=== PATIENT | female | born 1985 | race Caucasian/White ===

== ENCOUNTER 2017-11-07 16:57 | Emergency (ER) | payer SELFPAY ==
[~2017-11-07] VITALS: Ht 157.5 cm; Wt 56.8 kg
[2017-11-07 16:57] VITALS: BP 135/80
[2017-11-07] MEDS ORDERED: PENICILLIN V POTASSIUM 500 MG TAB PO ONE (18:00)
[2017-11-07] MEDS ORDERED: traMADol 50 MG TAB (BULK 4 TAB ED) PO ONE (18:00)
[2017-11-07] MEDS ORDERED: PENI500T OR (18:12)
[2017-11-07] MEDS ORDERED: ULTR50TA8 PO (18:12)
== END 2017-11-07 18:21 | disposition home or self-care (01) ==
LOC: M ED 16:57
DX: K04.7 Periapical abscess without sinus (principal)